=== PATIENT | female | born 1940 | race Caucasian/White ===

== ENCOUNTER 2024-10-11 05:20 | Inpatient (IN) | payer OTHER ==
[~2024-10-11] VITALS: Ht 177.8 cm; Wt 76.3 kg
[2024-10-11] VITALS (38 sets, daily range): BP systolic 90–190; BP diastolic 38–154; TEMP 97.6–98.1; O2SAT 90–100
[2024-10-11 06:57] LABS: BASOPHILS # (AUTO) 0.1 K/UL (0.0-0.2); BASOPHILS % (AUTO) 0.6 % (0.0-2.0); EOSINOPHILS # (AUTO) 0.3 K/uL (0.0-0.7); EOSINOPHILS % (AUTO) 2.2 % (0.0-7.0); HEMATOCRIT 35.5 % (31.2-41.9); LYMPHOCYTES # (AUTO) 0.9 K/uL (0.8-4.8); LYMPHOCYTES % (AUTO) 6.5 % (20.5-51.5); MEAN CORPUSCULAR HEMOGLOBIN 27.7 uug (24.7-32.8); MEAN CORPUSCULAR HGB CONC 34 g/dL (32.3-35.6); MEAN CORPUSCULAR VOLUME 81.8 fL (75.5-95.3); MONOCYTES # (AUTO) 0.8 K/uL (0.1-1.30); MONOCYTES % (AUTO) 5.9 % (0.0-11.0); NEUTROPHILS # (AUTO) 11.6 K/uL (1.8-8.9); NEUTROPHILS % (AUTO) 84.8 % (38.5-71.5); PLATELET COUNT (AUTO) 191 K/uL (179-408); RED BLOOD CELL COUNT(AUTO) 4.34 MIL/uL (3.63-4.92); RED CELL DISTRIBUTION WIDTH 15.5 % (12.3-17.7); WHITE BLOOD COUNT (AUTO) 13.7 K/uL (3.8-11.8)
[2024-10-11 07:05] LABS: CALCIUM 7.9 mg/dL (8.5-10.1); CARBON DIOXIDE 29 mmol/L (21-32); CHLORIDE 93 mmol/L (98-107); CREATININE 1.1 mg/dL (0.6-1.3); GLUCOSE 101 mg/dL (74-106); POTASSIUM 4.1 mmol/L (3.5-5.1); SODIUM SERUM 131 mmol/L (136-145); UREA NITROGEN, BLOOD 25 mg/dL (7-18)
[2024-10-11 07:07] LABS: DIFFERENTIAL COMMENT 1
[2024-10-11 07:22] LABS: ALANINE AMINOTRANSFERASE 17 U/L (14-59); ALBUMIN 3.4 g/dL (3.4-5.0); ALKALINE PHOSPHATASE 88 U/L (50-136); ASPARTATE AMINOTRANSFERASE 24 U/L (15-37); BILIRUBIN,DIRECT 0.2 mg/dL (0.0-0.2); BILIRUBIN,TOTAL 0.7 mg/dL (0.2-1.0); NT-PRO BNP 11827 pg/mL (0-125); TOTAL PROTEIN, SERUM 7.4 g/dL (6.4-8.2)
[2024-10-11] MEDS: ASPIRIN 81 MG TAB.CHEW PO ONE (07:40)
[2024-10-11] MEDS ORDERED: ASPIRIN 81 MG TAB.CHEW ONE (07:45)
[2024-10-11] MEDS: IV NS 1000 ML 1,000 ML IV ONE (07:55)
[2024-10-11] MEDS ORDERED: IOHEXOL 350 100 ML INFUS..BTL ONE (08:23)
[2024-10-11] MEDS ORDERED: SWABABLE VALVE TRANSFER SET EA MC ONE (08:23)
[2024-10-11] MEDS ORDERED: OXYB5TAB16 PO (08:25)
[2024-10-11] MEDS ORDERED: LEVO112T5 PO (08:25)
[2024-10-11] MEDS ORDERED: IBUP-2314 PO (08:25)
[2024-10-11] MEDS ORDERED: HYDR25TA4 PO (08:25)
[2024-10-11] MEDS ORDERED: LISI10TA29 PO (08:25)
[2024-10-11] MEDS ORDERED: ASPI81TA31 PO (08:25)
[2024-10-11] MEDS ORDERED: PANT40TA49 PO (08:25)
[2024-10-11] MEDS ORDERED: TRAZ-182 PO (08:25)
[2024-10-11] MEDS ORDERED: ATOR40TA PO (08:25)
[2024-10-11] MEDS ORDERED: FUROSEMIDE 40 MG/4 ML VIAL ONE (09:17)
[2024-10-11] MEDS: FUROSEMIDE 40 MG/4 ML VIAL IV ONE (09:20)
[2024-10-11] MEDS: LORAZEPAM 2 MG/1 ML VIAL IV ONE (09:59)
[2024-10-11 10:42] LABS: *BILIRUBIN,URIN NEGATIVE (NEGATIVE); *BLOOD, URINE TRACE (NEGATIVE); *CLARITY,URINE CLEAR (CLEAR); *COLOR,URINE YELLOW (YELLOW); *KETONES,URINE NEGATIVE (NEGATIVE); *PROTEIN,URINE 2+ (NEGATIVE); *UROBILINOGEN,URINE 0.2 E.U./dl (NORMAL); LEUKOCYTE ESTERASE ,URINE NEGATIVE (NEGATIVE); NITRITE, URINE NEGATIVE (NEGATIVE); UGLUCOSE NEGATIVE (NEGATIVE)
[2024-10-11 10:43] LABS: BACTERIA,URINE FEW /HPF (NONE SEEN); SQUAMOUS EPITHELIAL CELL,UR FEW /HPF (NONE SEEN); WBC,URINE 0-3 /HPF (0-3)
[2024-10-11] MEDS ORDERED: MAGNESIUM HYDROXIDE 30 ML LIQUID UDC PO PRN (11:45)
[2024-10-11] MEDS ORDERED: ACETAMINOPHEN 325 MG TABLET PO PRN (11:45)
[2024-10-11] MEDS ORDERED: ONDANSETRON 4 MG/2 ML VIAL IV PRN (11:45)
[2024-10-11] MEDS ORDERED: MULT-225 PO (13:17)
[2024-10-11] MEDS ORDERED: DOXY100T28 PO (13:18)
[2024-10-11] MEDS ORDERED: HYDR12.55 PO (13:19)
[2024-10-11] MEDS ORDERED: CARV3.122 PO (13:19)
[2024-10-11] MEDS ORDERED: OXYB15TA19 PO (13:20)
[2024-10-11] MEDS ORDERED: TRAMADOL HCL 50 MG TABLET PO PRN (15:00)
[2024-10-11] MEDS: CEFTRIAXONE 1 G in IV DEXTROSE 5% 50 ML IV SCH (17:57)
[2024-10-11] MEDS: CARVEDILOL 3.125 MG TABLET PO SCH (17:58)
[2024-10-11] MEDS: TRAZODONE 50 MG TABLET PO SCH (17:58)
[2024-10-11] MEDS: DOXYCYCLINE HYCLATE IV 100 MG in IV DEXTROSE 5% 100 ML IV SCH (20:56)
[2024-10-11] MEDS: ATORVASTATIN 40 MG TABLET PO SCH (20:56)
[2024-10-11] MEDS: FUROSEMIDE 40 MG/4 ML VIAL IV SCH (20:56)
[2024-10-12] VITALS (46 sets, daily range): BP systolic 110–186; BP diastolic 37–102; TEMP 97.1–98.4; O2SAT 86–99
[2024-10-12 05:03] LABS: BASOPHILS % (AUTO) 0.5 % (0.0-2.0); EOSINOPHILS # (AUTO) 0.3 K/uL (0.0-0.7); EOSINOPHILS % (AUTO) 3.4 % (0.0-7.0); HEMATOCRIT 36.8 % (31.2-41.9); HEMOGLOBIN 12.6 g/dL (10.9-14.3); LYMPHOCYTES # (AUTO) 0.9 K/uL (0.8-4.8); MEAN CORPUSCULAR HEMOGLOBIN 27.6 uug (24.7-32.8); MEAN CORPUSCULAR HGB CONC 34 g/dL (32.3-35.6); MEAN CORPUSCULAR VOLUME 80.8 fL (75.5-95.3); MONOCYTES # (AUTO) 0.8 K/uL (0.1-1.30); MONOCYTES % (AUTO) 9.6 % (0.0-11.0); NEUTROPHILS # (AUTO) 6.7 K/uL (1.8-8.9); NEUTROPHILS % (AUTO) 76.5 % (38.5-71.5); PLATELET COUNT (AUTO) 181 K/uL (179-408); RED BLOOD CELL COUNT(AUTO) 4.56 MIL/uL (3.63-4.92); RED CELL DISTRIBUTION WIDTH 15.8 % (12.3-17.7); WHITE BLOOD COUNT (AUTO) 8.7 K/uL (3.8-11.8)
[2024-10-12 05:19] LABS: CALCIUM 7.3 mg/dL (8.5-10.1); CARBON DIOXIDE 33 mmol/L (21-32); CHLORIDE 95 mmol/L (98-107); CREATININE 0.9 mg/dL (0.6-1.3); GLUCOSE 105 mg/dL (74-106); MAGNESIUM 1.6 mg/dL (1.8-2.4); POTASSIUM 2.9 mmol/L (3.5-5.1); SODIUM SERUM 140 mmol/L (136-145); UREA NITROGEN, BLOOD 20 mg/dL (7-18)
[2024-10-12 05:23] LABS: DIFFERENTIAL COMMENT 1
[2024-10-12 06:17] LABS: ABG BASE EXCESS 5.8 mmol/L (-2.0-3.0); ABG HCO3 30.1 mmol/L (21.0-28.0); ABG PCO2 42.4 mmHg (32.0-45.0); ABG PH 7.469 (7.350-7.450); ABG PO2 68.8 mmHg (83.0-108.0); ABG TOTAL HEMOGLOBIN 13.2 G/dL (12.0-16.0); AaDO2 94.7 mmHg; COHb 0.8 % (0.5-1.5); MetHb 0.3 % (0.0-1.5); O2Hb 93.3 % (94.0-98.0)
[2024-10-12] MEDS: POTASSIUM CHLORIDE 50 ML IV SCH (09:09)
[2024-10-12] MEDS: ENOXAPARIN SODIUM 40 MG/0.4 ML DISP.SYRIN SQ SCH (09:11)
[2024-10-12] MEDS: ASPIRIN EC 81 MG TABLET.DR PO SCH (09:14)
[2024-10-12] MEDS: MULTIVITAMINS,THERAPEUTIC TABLET PO SCH (09:14)
[2024-10-12] MEDS: PANTOPRAZOLE SODIUM 40 MG TABLET.DR PO SCH (09:14)
[2024-10-12] MEDS: LISINOPRIL 10 MG TABLET PO SCH (09:15)
[2024-10-12] MEDS: POTASSIUM CHLORIDE 20 MEQ POWDER PACKET PO SCH (09:16)
[2024-10-12] MEDS: LEVOTHYROXINE SODIUM 112 MCG TABLET PO SCH (09:16)
[2024-10-12] MEDS: MAGNESIUM SULFATE/D5W 100 ML IV SCH (10:48)
[2024-10-12] MEDS ORDERED: FUROSEMIDE 40 MG/4 ML VIAL IV SCH (21:00)
[2024-10-12] MEDS: TRAZODONE 50 MG TABLET PO SCH (21:06)
[2024-10-12] MEDS: FUROSEMIDE 20 MG/2 ML VIAL IV SCH (21:06)
[2024-10-13] VITALS (9 sets, daily range): BP systolic 123–182; BP diastolic 47–63; TEMP 98.2–98.6; O2SAT 94–98
[2024-10-13 06:58] LABS: BASOPHILS # (AUTO) 0.1 K/UL (0.0-0.2); DIFFERENTIAL COMMENT 0; EOSINOPHILS # (AUTO) 0.5 K/uL (0.0-0.7); EOSINOPHILS % (AUTO) 3.7 % (0.0-7.0); HEMATOCRIT 37.8 % (31.2-41.9); HEMOGLOBIN 13.1 g/dL (10.9-14.3); LYMPHOCYTES # (AUTO) 0.9 K/uL (0.8-4.8); LYMPHOCYTES % (AUTO) 7.4 % (20.5-51.5); MEAN CORPUSCULAR HEMOGLOBIN 28.1 uug (24.7-32.8); MEAN CORPUSCULAR HGB CONC 35 g/dL (32.3-35.6); MEAN CORPUSCULAR VOLUME 81.1 fL (75.5-95.3); MONOCYTES % (AUTO) 8.1 % (0.0-11.0); NEUTROPHILS # (AUTO) 10.2 K/uL (1.8-8.9); NEUTROPHILS % (AUTO) 79.8 % (38.5-71.5); PLATELET COUNT (AUTO) 218 K/uL (179-408); RED BLOOD CELL COUNT(AUTO) 4.67 MIL/uL (3.63-4.92); RED CELL DISTRIBUTION WIDTH 15.8 % (12.3-17.7); WHITE BLOOD COUNT (AUTO) 12.8 K/uL (3.8-11.8)
[2024-10-13 07:06] LABS: IRON, SERUM 38 ug/dL (50-175)
[2024-10-13 07:13] LABS: THYROID STIMULATING HORMONE 4.465 mIU/mL (0.358-3.740)
[2024-10-13 07:29] LABS: CALCIUM 7.7 mg/dL (8.5-10.1); CARBON DIOXIDE 31 mmol/L (21-32); CHLORIDE 94 mmol/L (98-107); CHOLESTEROL 196 mg/dL (<200); GLUCOSE 111 mg/dL (74-106); HDL CHOLESTEROL 68 mg/dL (40-60); MAGNESIUM 2.1 mg/dL (1.8-2.4); PHOSPHOROUS 3.8 mg/dL (2.5-4.9); POTASSIUM 3.9 mmol/L (3.5-5.1); SODIUM SERUM 135 mmol/L (136-145); TRIGLYCERIDES 97 MG/DL (30-150); UREA NITROGEN, BLOOD 22 mg/dL (7-18)
[2024-10-13] MEDS: LISINOPRIL 20 MG TABLET PO SCH (08:44)
[2024-10-13] MEDS ORDERED: LISINOPRIL 10 MG TABLET PO SCH (09:00)
[2024-10-13] MEDS: hydrALAZINE HCL 20 MG/1 ML VIAL IV PRN (20:37)
[2024-10-14 00:41] VITALS: BP 164/55; TEMP 98; O2SAT 98
[2024-10-14] MEDS: REMEDY ESSENTIAL ZINC PASTE 113 GM TP PRN (04:07)
[2024-10-14 05:15] VITALS: BP 208/49; TEMP 98.7; O2SAT 97
[2024-10-14 08:00] VITALS: BP 115/49; TEMP 97.8; O2SAT 97
[2024-10-14] MEDS: CARVEDILOL 6.25 MG TABLET PO SCH (08:50)
[2024-10-14] MEDS ORDERED: CARVEDILOL 3.125 MG TABLET PO SCH (09:00)
[2024-10-14] MEDS: LISINOPRIL 20 MG TABLET PO SCH (09:43)
[2024-10-14 10:28] LABS: BASOPHILS # (AUTO) 0.1 K/UL (0.0-0.2); BASOPHILS % (AUTO) 0.7 % (0.0-2.0); EOSINOPHILS # (AUTO) 0.1 K/uL (0.0-0.7); EOSINOPHILS % (AUTO) 0.9 % (0.0-7.0); HEMOGLOBIN 13.3 g/dL (10.9-14.3); LYMPHOCYTES # (AUTO) 0.8 K/uL (0.8-4.8); LYMPHOCYTES % (AUTO) 6.3 % (20.5-51.5); MEAN CORPUSCULAR HEMOGLOBIN 27.5 uug (24.7-32.8); MEAN CORPUSCULAR HGB CONC 33 g/dL (32.3-35.6); MEAN CORPUSCULAR VOLUME 82.8 fL (75.5-95.3); NEUTROPHILS # (AUTO) 10.5 K/uL (1.8-8.9); NEUTROPHILS % (AUTO) 84.1 % (38.5-71.5); PLATELET COUNT (AUTO) 262 K/uL (179-408); RED BLOOD CELL COUNT(AUTO) 4.82 MIL/uL (3.63-4.92); RED CELL DISTRIBUTION WIDTH 15.5 % (12.3-17.7); WHITE BLOOD COUNT (AUTO) 12.5 K/uL (3.8-11.8)
[2024-10-14 10:42] LABS: ALANINE AMINOTRANSFERASE 17 U/L (14-59); ALBUMIN 3.2 g/dL (3.4-5.0); ALKALINE PHOSPHATASE 85 U/L (50-136); ASPARTATE AMINOTRANSFERASE 28 U/L (15-37); BILIRUBIN,TOTAL 0.6 mg/dL (0.2-1.0); CALCIUM 7.7 mg/dL (8.5-10.1); CARBON DIOXIDE 31 mmol/L (21-32); CHLORIDE 92 mmol/L (98-107); CREATININE 1.5 mg/dL (0.6-1.3); GLUCOSE 168 mg/dL (74-106); POTASSIUM 4.1 mmol/L (3.5-5.1); SODIUM SERUM 131 mmol/L (136-145); TOTAL PROTEIN, SERUM 7.3 g/dL (6.4-8.2); UREA NITROGEN, BLOOD 27 mg/dL (7-18)
[2024-10-14 10:43] LABS: DIFFERENTIAL COMMENT 1
[2024-10-14 11:09] VITALS: BP 114/41; TEMP 97.5; O2SAT 96
== END 2024-10-14 15:30 | DRG 280 ==
LOC: ER 05:20 → CCU 09:50 → TELE3 10-12 18:26
PROVIDERS: ADMIT Nurse Practitioner Acute Care; ATTEND Nurse Practitioner Acute Care
PROC: 5A09357 Assistance with Respiratory Ventilation, Less than 24 Consecutive Hours, Continuous Positive Airway Pressure (ICD-10-PCS; principal; 2024-10-11)
PROC: 05HC33Z Insertion of Infusion Device into Left Basilic Vein, Percutaneous Approach (ICD-10-PCS; 2024-10-13)
DX: I50.31 Acute diastolic (congestive) heart failure (principal); G93.41 Metabolic encephalopathy; I21.A1 Myocardial infarction type 2; J96.01 Acute respiratory failure with hypoxia; E87.1 Hypo-osmolality and hyponatremia; D68.59 Other primary thrombophilia; I08.0 Rheumatic disorders of both mitral and aortic valves; Z79.890 Hormone replacement therapy; Z79.82 Long term (current) use of aspirin; Z79.899 Other long term (current) drug therapy; E78.5 Hyperlipidemia, unspecified; E89.0 Postprocedural hypothyroidism; E87.6 Hypokalemia; E04.1 Nontoxic single thyroid nodule; K80.20 Calculus of gallbladder without cholecystitis without obstruction; R31.29 Other microscopic hematuria; M15.9 Polyosteoarthritis, unspecified; S99.912A Unspecified injury of left ankle, initial encounter; S99.922A Unspecified injury of left foot, initial encounter; W06.XXXA Fall from bed, initial encounter; Y92.032 Bedroom in apartment as the place of occurrence of the external cause; D72.829 Elevated white blood cell count, unspecified; I11.9 Hypertensive heart disease without heart failure
CPT/HCPCS: 36415; 36600; 71045; 71275; 73600; 73620; 82803; 83550; 83605; 83735; 84100; 84443; 84484; 85025; 87040; 93005; 93307; 94660; 94760; A4606; A6213; G0378; J0360; J0696; J1650; J1938; J3475; J3480; J3490; J7040; Q9967